=== PATIENT | female | born 1975 | race Caucasian/White ===

== ENCOUNTER 2018-11-24 20:54 | Emergency (ER) | payer SELFPAY ==
[2018-11-24] MEDS ORDERED: Ketorolac Tromethamine 30 MG/ML VIAL ONE (21:16)
[2018-11-24] MEDS ORDERED: diphenhydrAMINE 25 MG CAP ONE (21:28)
[2018-11-24 21:34] LABS: #Basophils 0.1 thou/uL (0.0-0.2); #Eosinphils 0.3 thou/uL (0.0-0.7); #Lymphocytes 2.3 thou/uL (1.20-3.40); #Monocytes 0.7 thou/uL (0.11-0.59); %Basophils 1.3 % (0.0-1.0); %Eosinophils 3.3 % (0.0-10.0); %Lymphocytes 27.6 % (21.0-51.0); %Monocytes 8.2 % (0.0-10.0); %Neutrophils 59.7 % (42.0-75.0); Hemoglobin 14.5 g/dL (12.0-16.0); Mean Corpuscular HGB CONC 36.2 g/dL (32.0-36.0); Mean Corpuscular Hemoglobin 30.8 pg (27.0-31.0); Mean Corpuscular Volume 85.1 fL (78.0-98.0); Platelet Count 174 thou/uL (130-400); RBC Distribution Width 10.9 % (11.5-14.5); Red Blood Cell (RBC) Count 4.71 mill/uL (4.20-5.40); White Blood Cell (WBC) Count 8.4 thou/uL (4.8-10.8)
[2018-11-24 21:37] LABS: BHCG - Serum Negative (NEGATIVE); Pregs Control Background? CLEAR/WHITE (CLR/WHITE); Pregs Control Bar Appear? YES (CONTROL BAR)
[2018-11-24 21:50] LABS: ALT (SGPT) 12 U/L (8-55); AST (SGOT) 11 U/L (5-34); Alkaline Phosphatase 95 U/L (40-150); Anion Gap 13 mmol/L (10-20); BUN (Urea Nitrogen) 15 mg/dL (7.0-18.7); Bilirubin, Total 0.3 mg/dL (0.2-1.2); Calc. Creatinine Clearance 0 mL/min (70-130); Calcium 9.3 mg/dL (7.8-10.44); Carbon Dioxide 20 mmol/L (22-29); Chloride 108 mmol/L (98-107); Estimated GFR-MDRD 81; Globulin 2.7 g/dL (2.4-3.5); Glucose 103 mg/dL (70-105); Lipase 52 U/L (8-78); Potassium 3.8 mmol/L (3.5-5.1); Protein, Total 6.7 g/dL (6.0-8.3); Sodium 137 mmol/L (136-145)
--- NOTE | 2018-11-24 22:29 | CT ---
CT ABDOMEN AND PELVIS WITH CONTRAST 11/24/[address] of the abdomen and pelvis was performed for evaluation of right sided pain. Axial slices we re acquired followed by coronal and sagittal reconstructions. The lung bases are clear. The liver, spleen, pancreas, kidneys and abdominal aorta appear normal. The adrenal glands appear normal. There has been a prior cholecystectomy. There is no sign of dilation o f the biliary ducts. The bowel was unremarkable in appearance. The appendix appears normal. There is no bowel distention, wall thickening, or inflammatory change around it. No free air or free fluid was seen. CT of the pelvis shows no pelvic masses. There is a ring enhancing rounded 1.8 cm area in the right o vary which might be a collapsing cyst. There is no significant amount of free fluid in the pelvis. No inflammatory changes are seen in the pelvis. No acute findings are appreciated in the lumbar spine. IMPRESSION: No acute abdominal or pelvic findings of concern. At most, there may be a small collapsing cyst in th e right ovary. POS: HOME
[2018-11-24 22:47] LABS: Bilirubin Negative (Negative); Blood, Urine Negative (Negative); Clarity Clear (Clear); Glucose, Urine (Dipstick) Negative (Negative); Leukocyte Negative (Negative); Nitrite Negative (Negative); Protein, Urine (Dipstick) Negative (Neg-Trace); Specific Gravity, Urine 1.025 (1.005-1.030); Urobilinogen 0.2 mg/dL (0.2-1.0)
== END 2018-11-24 22:48 | disposition home or self-care (01) ==
LOC: BURERS 20:54
DX: R10.11 Right upper quadrant pain (principal); E11.649 Type 2 diabetes mellitus with hypoglycemia without coma
CPT/HCPCS: 36415; 74177; 80053; 81003; 83605; 83690; 84484; 84703; 85025; 96374; J1885; Q0163

== ENCOUNTER 2018-12-09 13:01 | Emergency (ER) | payer SELFPAY ==
[2018-12-09] MEDS ORDERED: Acetaminophen 500 MG TAB ONE (13:42)
[2018-12-09] MEDS ORDERED: Benzonatate 100 MG CAP ONE (13:42)
== END 2018-12-09 13:48 | disposition home or self-care (01) ==
LOC: BURERS 13:01
DX: J06.9 Acute upper respiratory infection, unspecified (principal); E11.649 Type 2 diabetes mellitus with hypoglycemia without coma; F41.9 Anxiety disorder, unspecified; F20.9 Schizophrenia, unspecified; F17.210 Nicotine dependence, cigarettes, uncomplicated; Z87.442 Personal history of urinary calculi
CPT/HCPCS: 87804; 99283

== ENCOUNTER 2021-03-02 22:47 | Emergency (ER) | payer SELFPAY ==
[2021-03-02] MEDS ORDERED: Ketorolac Tromethamine 30 MG/ML VIAL ONE (23:21)
[2021-03-03 00:06] LABS: #Basophils 0.1 thou/uL (0.0-0.2); #Eosinphils 0.3 thou/uL (0.0-0.7); #Lymphocytes 2.3 thou/uL (1.20-3.40); #Monocytes 0.5 thou/uL (0.11-0.59); #Neutrophils 5.2 thou/uL (1.40-6.50); %Basophils 0.9 % (0.0-1.0); %Eosinophils 3.2 % (0.0-10.0); %Lymphocytes 27.9 % (21.0-51.0); %Monocytes 6.5 % (0.0-10.0); %Neutrophils 61.5 % (42.0-75.0); Hemoglobin 15.4 g/dL (12.0-16.0); Mean Corpuscular HGB CONC 33.9 g/dL (32.0-36.0); Mean Corpuscular Hemoglobin 30.5 pg (27.0-31.0); Mean Corpuscular Volume 89.9 fL (78.0-98.0); Platelet Count 208 thou/uL (130-400); Red Blood Cell (RBC) Count 5.03 mill/uL (4.20-5.40); White Blood Cell (WBC) Count 8.4 thou/uL (4.8-10.8)
[2021-03-03 00:09] LABS: Bilirubin Negative (Negative); Blood, Urine Negative (Negative); Clarity Slightly Cloudy (Clear); Glucose, Urine (Dipstick) Negative (Negative); Ketone, Urine Negative (Negative); Leukocyte Negative (Negative); Nitrite Negative (Negative); Protein, Urine (Dipstick) Negative (Neg-Trace); Specific Gravity, Urine 1.025 (1.002-1.036); Urobilinogen 0.2 mg/dL (Less than 2); pH, Urine 5.5 (5.0-9.0)
[2021-03-03 00:22] LABS: ALT (SGPT) 12 U/L (8-55); AST (SGOT) 9 U/L (5-34); Albumin 3.6 g/dL (3.5-5.0); Alkaline Phosphatase 85 U/L (40-110); Anion Gap 15 mmol/L (10-20); BUN (Urea Nitrogen) 8 mg/dL (7.0-18.7); Bilirubin, Total 0.3 mg/dL (0.2-1.2); Calc. Creatinine Clearance 0 mL/min (70-130); Carbon Dioxide 23 mmol/L (22-29); Chloride 107 mmol/L (98-107); Globulin 2.5 g/dL (2.4-3.5); Glucose 106 mg/dL (70-105); Lipase 31 U/L (8-78); Potassium 3.6 mmol/L (3.5-5.1); Protein, Total 6.1 g/dL (6.0-8.3); Sodium 141 mmol/L (136-145)
[2021-03-03 00:24] LABS: BHCG - Serum Negative (NEGATIVE); Pregs Control Background? CLEAR/WHITE (CLR/WHITE); Pregs Control Bar Appear? YES (CONTROL BAR)
[2021-03-03] MEDS ORDERED: Ketorolac Tromethamine 30 MG/ML VIAL ONE (02:27)
== END 2021-03-03 03:14 | disposition home or self-care (01) ==
LOC: BURERS 22:47
DX: R10.32 Left lower quadrant pain (principal); R10.31 Right lower quadrant pain
CPT/HCPCS: 74176; 80053; 81003; 83690; 84703; 85025; 96374; 96376; J1885

== ENCOUNTER 2021-08-18 10:05 | Emergency (ER) | payer SELFPAY ==
[2021-08-18] MEDS ORDERED: Ondansetron PF 4 MG/2 ML Vial ONE (10:22)
[2021-08-18] MEDS ORDERED: Fentanyl 100 MCG/2 ML VIAL ONE (10:22)
[2021-08-18 10:33] LABS: #Basophils 0.1 thou/uL (0.0-0.2); #Eosinphils 0.2 thou/uL (0.0-0.7); #Lymphocytes 1.6 thou/uL (1.20-3.40); #Monocytes 0.5 thou/uL (0.11-0.59); #Neutrophils 4.1 thou/uL (1.40-6.50); %Basophils 0.9 % (0.0-1.0); %Eosinophils 3.4 % (0.0-10.0); %Lymphocytes 24.9 % (21.0-51.0); %Monocytes 6.9 % (0.0-10.0); %Neutrophils 63.9 % (42.0-75.0); Hemoglobin 14.3 g/dL (12.0-16.0); Mean Corpuscular HGB CONC 34.7 g/dL (32.0-36.0); Mean Corpuscular Hemoglobin 30.3 pg (27.0-31.0); Mean Corpuscular Volume 87.5 fL (78.0-98.0); Mean Platelet Volume 6.5 fL (7.4-10.4); Platelet Count 231 thou/uL (130-400); RBC Distribution Width 10.7 % (11.5-14.5); Red Blood Cell (RBC) Count 4.72 mill/uL (4.20-5.40); White Blood Cell (WBC) Count 6.4 thou/uL (4.8-10.8)
[2021-08-18 11:03] LABS: ALT (SGPT) 26 U/L (8-55); AST (SGOT) 19 U/L (5-34); Albumin 4.1 g/dL (3.5-5.0); Alkaline Phosphatase 116 U/L (40-110); Anion Gap 13 mmol/L (10-20); BUN (Urea Nitrogen) 6 mg/dL (7.0-18.7); Bilirubin, Total 0.6 mg/dL (0.2-1.2); Calc. Creatinine Clearance 0 mL/min (70-130); Calcium 9.8 mg/dL (7.8-10.44); Carbon Dioxide 22 mmol/L (22-29); Chloride 108 mmol/L (98-107); Globulin 2.8 g/dL (2.4-3.5); Glucose 98 mg/dL (70-105); Protein, Total 6.9 g/dL (6.0-8.3); Sodium 139 mmol/L (136-145)
[2021-08-18 11:42] LABS: Bilirubin Negative (Negative); Blood, Urine Negative (Negative); Clarity Slightly Cloudy (Clear); Glucose, Urine (Dipstick) Negative (Negative); Ketone, Urine Negative (Negative); Leukocyte Negative (Negative); Nitrite Negative (Negative); Protein, Urine (Dipstick) Negative (Neg-Trace); Urobilinogen 0.2 mg/dL (Less than 2); pH, Urine 8.5 (5.0-9.0)
[2021-08-18 11:45] LABS: Pregnancy Test - Urine (BHCG) Negative (Negative); Pregu Control Background? CLEAR/WHITE (CLR/WHITE); Pregu Control Bar Appear? YES (CONTROL BAR)
[2021-08-18 11:53] LABS: Amphetamine Not Detected (NotDetected); Barbiturates Screen Not Detected (NotDetected); Benzodiazepine Screen Not Detected (NotDetected); Cocaine Metabolite Screen Not Detected (NotDetected); Medtox Control Line Valid? VALID (VALID); Methadone Not Detected (NotDetected); Methamphetamine Not Detected (NotDetected); Opiate Screen Not Detected (NotDetected); Oxycodone Screen Not Detected (NotDetected); Phencyclidine (PCP) Not Detected (NotDetected); THC/Cannabinoid Screen Not Detected (NotDetected); Tricyclic Screen Not Detected (NotDetected)
== END 2021-08-18 13:58 | disposition home or self-care (01) ==
LOC: BURERS 10:05
DX: R10.32 Left lower quadrant pain (principal); R11.2 Nausea with vomiting, unspecified; Z87.891 Personal history of nicotine dependence
CPT/HCPCS: 74176; 80053; 80306; 81003; 81025; 83605; 85025; 96372; 96374; 96375; J0500; J2405; J3010

== ENCOUNTER 2021-10-21 11:44 | Emergency (ER) | payer SELFPAY ==
[2021-10-21] MEDS ORDERED: Ketorolac Tromethamine 30 MG/ML VIAL ONE (13:18)
[2021-10-21] MEDS ORDERED: Metoclopramide HCl 10 MG/2 ML VIAL ONE (13:18)
[2021-10-21 23:28] LABS: SARS-CoV-2 PCR by NAA DETECTED (NotDetected)
== END 2021-10-21 14:05 | disposition home or self-care (01) ==
LOC: BURERS 11:44
DX: U07.1 COVID-19 (principal); Z87.891 Personal history of nicotine dependence
CPT/HCPCS: 71046; 87804; 96372; J1885; J2765; U0003; U0005